=== PATIENT | female | born 1960 | race Caucasian/White ===

== ENCOUNTER → 2016-11-20 | Outpatient (CLI) | payer OTHER ==
[~2016-11-20] MED LIST: ACET-1600 PO; ACET500V PO; ATIVAN PO; BACLOFEN PO; BENA20TA2 PO; BUPR150T20 PO; BUPR150T6 PO; CALC-112 PO; CHOL10003 PO; CINNAMON/CHROMIUM PO; CIPR500T3 PO; CITA20TA5 PO; CITA20TA9 PO; DIAMOX PO; DOXY100C2 PO; FISH OIL OMEGA1 EACH PO; FURO-93 PO; GABA300C10 PO; GABA600T2 PO; GLIP-142 PO; GLIP5TAB10 PO; LEVO150T5 PO; LORA10TA75 PO; LORA1TAB PO; MAGNESIUM PO; METF500T4 PO; METF850T2 PO; METR500T PO; MINO100C PO; MONT10TA6 PO; MONT10TA9 PO; MULT-82 PO; ODANSETRON PO; OMEP-110 PO; OXYB10TA6 PO; OXYB5TAB7 PO; OXYC5TAB3 PO; PIOG45TA7 PO; POTA2IV.2 PO; SIMV40TA3 PO; TRAM100T13 PO; TRAM50TA2 PO; TYLENOL PM PO; VITAMIN B12 PO; oxycodone PO
== END | disposition home or self-care (01) ==
LOC: CVU 12:45
PROVIDERS: ATTEND Surgery
DX: I70.203 Unspecified atherosclerosis of native arteries of extremities, bilateral legs (principal); I83.10 Varicose veins of unspecified lower extremity with inflammation
CPT/HCPCS: 93922; 93925; 93970

== ENCOUNTER → 2017-03-22 | Outpatient (CLI) | payer OTHER ==
[~2017-03-22] MED LIST changes: +MULT-224 PO; -MULT-82 PO; +PIOG45TA20 PO; -PIOG45TA7 PO
== END | disposition home or self-care (01) ==
LOC: CVU 13:08
PROVIDERS: ATTEND Family Medicine
DX: Z02.9 Encounter for administrative examinations, unspecified (principal)

== ENCOUNTER 2017-12-24 07:56 | Day surgery (SDC) | payer OTHER ==
[~2017-12-24] VITALS: Ht 160 cm; Wt 74.6 kg
[~2017-12-24 07:56] MED LIST changes: -ACET500V PO; +ACET500V7 PO; -CITA20TA5 PO; +CITA20TA6 PO; -METF500T4 PO; +METF500T5 PO
[2017-12-24 09:20] VITALS: BP 104/70
[2017-12-24] MEDS ORDERED: MIDAZOLAM 1 MG/ML, 5ML ONE (09:23)
[2017-12-24] MEDS ORDERED: FLUMAZENIL 0.1 MG/1 ML, 5ML ONE (09:23)
[2017-12-24] MEDS ORDERED: HEPARIN 1,000 UNITS/ML, 10ML ONE (09:23)
[2017-12-24] MEDS ORDERED: FENTANYL PF 100 MCG/2ML ONE (09:23)
[2017-12-24] MEDS ORDERED: NALOXONE 1 MG/ML, 2ML ONE (09:24)
[2017-12-24] MEDS ORDERED: PROTAMINE SULFATE 10 MG/ML, 25ML ONE (09:24)
[2017-12-24 09:25] LABS: BASOPHILS # (AUTO) 0.05 x10^3/uL (0-0.1); BASOPHILS % (AUTO) 1 % (0-1); EOSINOPHILS # (AUTO) 0.16 x10^3/uL (0-0.4); EOSINOPHILS % (AUTO) 2 % (1-7); LYMPHOCYTES # (AUTO) 1.72 x10^3/uL (1-3.4); LYMPHOCYTES % (AUTO) 25 % (22-44); MD NO; MEAN CORPUSCULAR HEMOGLOBIN 23.8 pg (27.0-34.8); MEAN CORPUSCULAR HGB CONC 30.4 g/dL (32.4-35.8); MEAN CORPUSCULAR VOLUME 78.3 fL (80-100); MEAN PLATELET VOLUME 8.2 fL (7.4-10.4); MONOCYTES # (AUTO) 0.48 x10^3/uL (0.2-0.8); MONOCYTES % (AUTO) 7 % (2-9); NEUTROPHILS # (AUTO) 4.56 x10^3/uL (1.8-6.8); NEUTROPHILS % (AUTO) 65 % (42-75); PLATELET COUNT 299 x10^3/uL (130-400); RED BLOOD COUNT 4.29 x10^6/uL (3.82-5.3); RED CELL DISTRIBUTION WIDTH 18.2 % (9.6-15.2)
[2017-12-24] MEDS ORDERED: LIDOCAINE-MPF 2% ,5ML ONE (09:25)
[2017-12-24 09:36] LABS: ANION GAP 6 mmol/L (5-15); CALCIUM 8.5 mg/dL (8.5-10.1); CHLORIDE 108 mmol/L (98-107); CREATININE 0.88 mg/dL (0.55-1.02)
[2017-12-24] MEDS ORDERED: METF500T5 PO (09:39)
[2017-12-24] MEDS ORDERED: LEVO50TA5 PO (09:42)
[2017-12-24] MEDS ORDERED: LACTATED RINGERS 1,000 ML IV SCH (09:46)
[2017-12-24] MEDS ORDERED: VISIPAQUE 270 MG/ML, 150ML BOTTLE ONE (10:00)
[2017-12-24] MEDS ORDERED: ACETAMINOPHEN 325 MG TABLET ONE (12:34)
[2017-12-24] MEDS ORDERED: GABAPENTIN 300 MG CAPSULE ONE (12:39)
== END 2017-12-24 18:20 ==
LOC: OUT 07:56
PROVIDERS: ATTEND Surgery
DX: I73.9 Peripheral vascular disease, unspecified (principal); J43.9 Emphysema, unspecified; E11.9 Type 2 diabetes mellitus without complications; I10 Essential (primary) hypertension; F19.90 Other psychoactive substance use, unspecified, uncomplicated; Z85.3 Personal history of malignant neoplasm of breast; Z87.39 Personal history of other diseases of the musculoskeletal system and connective tissue; Z98.890 Other specified postprocedural states; Z90.13 Acquired absence of bilateral breasts and nipples; Z87.891 Personal history of nicotine dependence; Z88.5 Allergy status to narcotic agent; Z88.0 Allergy status to penicillin; Z88.8 Allergy status to other drugs, medicaments and biological substances; Z79.899 Other long term (current) drug therapy
CPT/HCPCS: 36415; 37224; 75630; 80048; 82962; 85025; 99156; 99157; C1725; C1760; C1769; J1644; J2250; J3010; J3490; J7120; Q9966; J2720; J2310

== ENCOUNTER 2018-06-02 20:53 | Inpatient (IN) | payer OTHER ==
[~2018-06-02] VITALS: Ht 160 cm; Wt 82.1 kg
[~2018-06-02 20:53] MED LIST changes: -BENA20TA2 PO; +BENA20TA4 PO; +LEVO50TA5 PO; +METF500T17 PO; -METF500T5 PO; +METF850T10 PO; -METF850T2 PO
[2018-06-02] MEDS ORDERED: ACETAMINOPHEN 325 MG TABLET PO ONE (21:30)
[2018-06-02] MEDS ORDERED: SODIUM CHLORIDE 0.9% 1,000ML IVBOLUS ONE (21:30)
[2018-06-02] MEDS ORDERED: ACETAMINOPHEN 325 MG TABLET ONE (21:32)
[2018-06-02 21:41] LABS: BASOPHILS # (AUTO) 0.04 x10^3/uL (0-0.1); BASOPHILS % (AUTO) 0 % (0-1); EOSINOPHILS # (AUTO) 0.01 x10^3/uL (0-0.4); EOSINOPHILS % (AUTO) 0 % (1-7); LYMPHOCYTES # (AUTO) 2.45 x10^3/uL (1-3.4); LYMPHOCYTES % (AUTO) 17 % (22-44); MD NO; MEAN CORPUSCULAR HEMOGLOBIN 23.7 pg (27.0-34.8); MEAN CORPUSCULAR HGB CONC 31.2 g/dL (32.4-35.8); MEAN CORPUSCULAR VOLUME 76.1 fL (80-100); MEAN PLATELET VOLUME 9.1 fL (7.4-10.4); MONOCYTES # (AUTO) 0.93 x10^3/uL (0.2-0.8); MONOCYTES % (AUTO) 7 % (2-9); NEUTROPHILS # (AUTO) 10.78 x10^3/uL (1.8-6.8); NEUTROPHILS % (AUTO) 76 % (42-75); PLATELET COUNT 494 x10^3/uL (130-400); RED BLOOD COUNT 6.09 x10^6/uL (3.82-5.3); RED CELL DISTRIBUTION WIDTH 18.5 % (9.6-15.2)
[2018-06-02 21:54] LABS: ALANINE AMINOTRANSFERASE 33 U/L (12-78); ALBUMIN 4.1 g/dL (3.4-5.0); ANION GAP 12 mmol/L (5-15); CALCIUM 8.7 mg/dL (8.5-10.1); CHLORIDE 92 mmol/L (98-107); CREATININE 1.37 mg/dL (0.55-1.02)
[2018-06-02 21:58] LABS: ALKALINE PHOSPHATASE 138 U/L (45-117); BILIRUBIN,TOTAL 0.6 mg/dL (0.2-1.0); TOTAL PROTEIN 8.9 g/dL (6.4-8.2); TROPONIN I 0.463 ng/mL (0.000-0.045)
[2018-06-02 22:11] LABS: MICROSCOPIC INDICATED
[2018-06-02 22:21] LABS: CULTURE INDICATED? YES
[2018-06-02] MEDS ORDERED: HEPARIN 5,000 UNITS/ML, 1ML ONE (22:22)
[2018-06-02] MEDS ORDERED: HEPARIN 25,000 UNITS/500ML PMX 500 ML ONE (22:23)
[2018-06-02] MEDS ORDERED: FENTANYL PF 100 MCG/2ML ONE (22:29)
[2018-06-02] MEDS ORDERED: HEPARIN 5,000 UNITS/ML, 1ML IV PRN (22:30)
[2018-06-02] MEDS ORDERED: HEPARIN 25,000 UNITS/500ML PMX 500 ML IV PRN (22:30)
[2018-06-02] MEDS ORDERED: ASPIRIN 325 MG TABLET PO ONE (22:30)
[2018-06-02] MEDS ORDERED: HEPARIN 5,000 UNITS/ML, 1ML IV ONE (22:30)
[2018-06-02] MEDS ORDERED: ASPIRIN 325 MG TABLET ONE (22:31)
[2018-06-02] MEDS ORDERED: FENTANYL PF 100 MCG/2ML IV ONE (23:00)
[2018-06-02 23:26] VITALS: BP 136/87
[2018-06-02] MEDS ORDERED: ONDANSETRON ODT 4 MG PO PRN (23:30)
[2018-06-02] MEDS ORDERED: ACETAMINOPHEN 325 MG TABLET PO PRN (23:30)
[2018-06-02] MEDS ORDERED: hydrALAzine 20 MG/ML, 1ML IVPush PRN (23:30)
[2018-06-03] MEDS ORDERED: SIMVASTATIN 40 MG TABLET PO SCH (00:30)
[2018-06-03] MEDS ORDERED: GABAPENTIN 300 MG CAPSULE PO PRN (00:30)
[2018-06-03] MEDS ORDERED: LORazepam 1MG TABLET PO PRN (01:00)
[2018-06-03] MEDS: NS + 20MEQ KCL 1,000 ML IV SCH ×3 (01:22→20:54)
[2018-06-03] MEDS: LIDODERM 5% PATCH TD PRN (01:24)
[2018-06-03] MEDS: INSULIN REGULAR 100 UNITS/ML, 3ML VIAL SQ-INSULIN SCH ×5 (02:21→20:54)
[2018-06-03 03:00] VITALS: BP 132/84
[2018-06-03] MEDS ORDERED: CALCIUM CARBONATE 500 MG TAB.CHEW PO PRN (03:30)
[2018-06-03 03:38] LABS: BASOPHILS # (AUTO) 0.05 x10^3/uL (0-0.1); BASOPHILS % (AUTO) 0 % (0-1); EOSINOPHILS # (AUTO) 0.04 x10^3/uL (0-0.4); EOSINOPHILS % (AUTO) 0 % (1-7); LYMPHOCYTES # (AUTO) 3.41 x10^3/uL (1-3.4); LYMPHOCYTES % (AUTO) 25 % (22-44); MD NO; MEAN CORPUSCULAR HEMOGLOBIN 23.7 pg (27.0-34.8); MEAN CORPUSCULAR VOLUME 76.5 fL (80-100); MEAN PLATELET VOLUME 8.8 fL (7.4-10.4); MONOCYTES # (AUTO) 1.12 x10^3/uL (0.2-0.8); MONOCYTES % (AUTO) 8 % (2-9); NEUTROPHILS # (AUTO) 9.28 x10^3/uL (1.8-6.8); NEUTROPHILS % (AUTO) 67 % (42-75); PLATELET COUNT 403 x10^3/uL (130-400); RED BLOOD COUNT 5.47 x10^6/uL (3.82-5.3); RED CELL DISTRIBUTION WIDTH 18.9 % (9.6-15.2)
[2018-06-03 04:07] LABS: ANION GAP 12 mmol/L (5-15); CALCIUM 8.9 mg/dL (8.5-10.1); CHLORIDE 98 mmol/L (98-107); CREATININE 1.08 mg/dL (0.55-1.02)
[2018-06-03 04:10] LABS: TROPONIN I 0.396 ng/mL (0.000-0.045)
[2018-06-03] MEDS: LEVOTHYROXINE 50 MCG TABLET PO SCH (04:35)
[2018-06-03 06:50] VITALS: BP 126/85
[2018-06-03] MEDS: BENAZEPRIL 20 MG TABLET PO SCH (09:00)
[2018-06-03] MEDS ORDERED: BENAZEPRIL 10 MG TABLET ONE (09:11)
[2018-06-03] MEDS: OMEPRAZOLE 20 MG CAPSULE.DR PO SCH (09:16)
[2018-06-03] MEDS: MONTELUKAST 10 MG TABLET PO SCH (09:17)
[2018-06-03] MEDS: CITALOPRAM 20 MG TABLET PO SCH (09:17)
[2018-06-03] MEDS: BUPROPION SR 150 MG TABLET PO SCH (09:17)
[2018-06-03] MEDS: ASPIRIN 81 MG TABLET EC PO SCH (11:06)
[2018-06-03 11:10] LABS: TROPONIN I 0.346 ng/mL (0.000-0.045)
[2018-06-03] MEDS ORDERED: FENTANYL PF 100 MCG/2ML ONE (12:46)
[2018-06-03] MEDS ORDERED: BIVALIRUDIN 250 MG ONE (12:46)
[2018-06-03] MEDS ORDERED: VERAPAMIL 2.5 MG/ML, 2ML ONE (12:46)
[2018-06-03] MEDS ORDERED: TICAGRELOR 90 MG TABLET ONE (12:46)
[2018-06-03] MEDS ORDERED: MIDAZOLAM 1 MG/ML, 5ML ONE (12:46)
[2018-06-03] MEDS ORDERED: LIDOCAINE 1%, 20ML ONE (12:46)
[2018-06-03 13:04] LABS: HEMOGLOBIN A1C 7.7 % (4.2-6.3)
[2018-06-03 14:25] VITALS: BP 91/59
[2018-06-03 15:50] VITALS: BP 103/61
[2018-06-03 18:57] VITALS: BP 93/62
[2018-06-03] MEDS ORDERED: ATORVASTATIN 40 MG TABLET PO SCH (21:00)
[2018-06-04] MEDS: LIDODERM 5% PATCH TD PRN (01:31)
[2018-06-04 03:16] VITALS: BP 92/51
[2018-06-04 03:20] VITALS: BP 97/57
[2018-06-04] MEDS: NS + 20MEQ KCL 1,000 ML IV SCH ×2 (04:16→16:00)
[2018-06-04] MEDS: ASPIRIN 81 MG TABLET EC PO SCH (05:28)
[2018-06-04] MEDS: LEVOTHYROXINE 50 MCG TABLET PO SCH (05:29)
[2018-06-04 05:45] LABS: BASOPHILS # (AUTO) 0.06 x10^3/uL (0-0.1); BASOPHILS % (AUTO) 1 % (0-1); EOSINOPHILS # (AUTO) 0.08 x10^3/uL (0-0.4); EOSINOPHILS % (AUTO) 1 % (1-7); LYMPHOCYTES # (AUTO) 2.76 x10^3/uL (1-3.4); LYMPHOCYTES % (AUTO) 31 % (22-44); MD NO; MEAN CORPUSCULAR HEMOGLOBIN 23.9 pg (27.0-34.8); MEAN CORPUSCULAR HGB CONC 31.4 g/dL (32.4-35.8); MEAN CORPUSCULAR VOLUME 76.2 fL (80-100); MEAN PLATELET VOLUME 9.1 fL (7.4-10.4); MONOCYTES # (AUTO) 0.71 x10^3/uL (0.2-0.8); MONOCYTES % (AUTO) 8 % (2-9); NEUTROPHILS # (AUTO) 5.43 x10^3/uL (1.8-6.8); NEUTROPHILS % (AUTO) 60 % (42-75); PLATELET COUNT 334 x10^3/uL (130-400); RED BLOOD COUNT 4.37 x10^6/uL (3.82-5.3); RED CELL DISTRIBUTION WIDTH 18.9 % (9.6-15.2)
[2018-06-04 05:56] LABS: ALBUMIN 3.1 g/dL (3.4-5.0); ANION GAP 8 mmol/L (5-15); CALCIUM 8.3 mg/dL (8.5-10.1); CHLORIDE 109 mmol/L (98-107)
[2018-06-04 06:02] LABS: ALANINE AMINOTRANSFERASE 24 U/L (12-78); ALKALINE PHOSPHATASE 91 U/L (45-117); BILIRUBIN,TOTAL 0.3 mg/dL (0.2-1.0); CHOL/HDL RATIO 2.7; CHOLESTEROL, TOTAL 143 mg/dL (140-239); CREATININE 0.95 mg/dL (0.55-1.02); HDL CHOL % 37 % (28-40); HDL CHOLESTEROL (DIRECT) 53 mg/dL (40-60); LDL CHOLESTEROL,CALCULATED 70 mg/dL (54-169); LDL/HDL RATIO 1.3 (0.5-3.0); TOTAL PROTEIN 6.6 g/dL (6.4-8.2); TRIGLYCERIDES 98 mg/dL (50-200); VLDL CHOLESTEROL 20 mg/dL (0-25)
[2018-06-04] MEDS: INSULIN REGULAR 100 UNITS/ML, 3ML VIAL SQ-INSULIN SCH ×3 (07:00→16:19)
[2018-06-04] MEDS: CITALOPRAM 20 MG TABLET PO SCH (08:47)
[2018-06-04] MEDS: BUPROPION SR 150 MG TABLET PO SCH (08:47)
[2018-06-04] MEDS: BENAZEPRIL 20 MG TABLET PO SCH (08:47)
[2018-06-04] MEDS: MONTELUKAST 10 MG TABLET PO SCH (08:47)
[2018-06-04] MEDS: OMEPRAZOLE 20 MG CAPSULE.DR PO SCH (08:47)
[2018-06-04 08:53] VITALS: BP 99/67
[2018-06-04 09:49] VITALS: BP_SYST 101; BP_SYST 107; BP_DIAS 66; BP_DIAS 69
[2018-06-04 09:50] VITALS: BP 98/72
[2018-06-04] MEDS ORDERED: MAGNESIUM SULFATE PMX 2GM/50ML 50 ML IV ONE (12:00)
[2018-06-04] MEDS ORDERED: ASPI81TA45 PO (14:58)
[2018-06-04 16:19] VITALS: BP 105/70
== END 2018-06-04 18:11 | disposition home or self-care (01) | DRG 280 ==
LOC: ED 21:33 → EDIP 22:29 → 5SO 23:16
PROVIDERS: ADMIT Internal Medicine; ATTEND Internal Medicine
PROC: 0T9B70Z Drainage of Bladder with Drainage Device, Via Natural or Artificial Opening (ICD-10-PCS; principal; 2018-06-02)
PROC: 4A023N7 Measurement of Cardiac Sampling and Pressure, Left Heart, Percutaneous Approach (ICD-10-PCS; 2018-06-03)
PROC: B2111ZZ Fluoroscopy of Multiple Coronary Arteries using Low Osmolar Contrast (ICD-10-PCS; 2018-06-03)
PROC: B2151ZZ Fluoroscopy of Left Heart using Low Osmolar Contrast (ICD-10-PCS; 2018-06-03)
DX: I21.4 Non-ST elevation (NSTEMI) myocardial infarction (principal); N17.0 Acute kidney failure with tubular necrosis; E87.2 Acidosis; F33.9 Major depressive disorder, recurrent, unspecified; N18.9 Chronic kidney disease, unspecified; E03.9 Hypothyroidism, unspecified; E11.21 Type 2 diabetes mellitus with diabetic nephropathy; E11.22 Type 2 diabetes mellitus with diabetic chronic kidney disease; E11.65 Type 2 diabetes mellitus with hyperglycemia; E78.00 Pure hypercholesterolemia, unspecified; E78.5 Hyperlipidemia, unspecified; E86.0 Dehydration; E83.42 Hypomagnesemia; E11.42 Type 2 diabetes mellitus with diabetic polyneuropathy; G51.0 Bell's palsy; M54.9 Dorsalgia, unspecified; F41.9 Anxiety disorder, unspecified; E87.6 Hypokalemia; I13.10 Hypertensive heart and chronic kidney disease without heart failure, with stage 1 through stage 4 chronic kidney disease, or unspecified chronic kidney disease; I25.10 Atherosclerotic heart disease of native coronary artery without angina pectoris; I25.2 Old myocardial infarction; J44.9 Chronic obstructive pulmonary disease, unspecified; K21.9 Gastro-esophageal reflux disease without esophagitis; Z79.84 Long term (current) use of oral hypoglycemic drugs; Z80.3 Family history of malignant neoplasm of breast; Z82.49 Family history of ischemic heart disease and other diseases of the circulatory system; Z83.3 Family history of diabetes mellitus; Z85.3 Personal history of malignant neoplasm of breast; Z86.011 Personal history of benign neoplasm of the brain; Z87.891 Personal history of nicotine dependence; Z90.13 Acquired absence of bilateral breasts and nipples; R27.0 Ataxia, unspecified; Z88.5 Allergy status to narcotic agent; Z88.0 Allergy status to penicillin
CPT/HCPCS: 36415; 71045; 80048; 80053; 80061; 81001; 82140; 82962; 83036; 83605; 83735; 84100; 84443; 84484; 85025; 85520; 87040; 87086; 90656; 93005; 93306; 93458; 96374; 96375; 99156; 99157; 99291; C1760; C1769; C1894; G0378; J0583; J1644; J1815; J2250; J3010; J3480; J3490; J3475; J7030; Q9967

== ENCOUNTER → 2018-08-06 | Outpatient (CLI) | payer MEDICARE ==
[~2018-08-06] MED LIST changes: +ASPI81TA45 PO; -BENA20TA4 PO; +BENA20TA54 PO; -GABA600T2 PO; +GABA600T7 PO; -MULT-224 PO; +MULT-642 PO
== END | disposition home or self-care (01) ==
LOC: CFH 13:45
PROVIDERS: ATTEND Internal Medicine Cardiovascular Disease
DX: I08.2 Rheumatic disorders of both aortic and tricuspid valves (principal); I11.9 Hypertensive heart disease without heart failure; E11.9 Type 2 diabetes mellitus without complications; I25.2 Old myocardial infarction; Z85.3 Personal history of malignant neoplasm of breast; Z90.13 Acquired absence of bilateral breasts and nipples
CPT/HCPCS: 93306

== ENCOUNTER 2019-05-20 09:34 | Emergency (ER) | payer MEDICARE ==
[~2019-05-20] VITALS: Ht 160 cm; Wt 80.0 kg
[~2019-05-20 09:34] MED LIST changes: -MINO100C PO; +MINO100C61 PO; +OXYB5TAB10 PO; -OXYB5TAB7 PO
--- NOTE | 2019-05-20 10:00 | NUR ---
pt to ed for high glucose x4-5 days. pt states elevated to 300-400 last night. pt unable to recall names of medications, but states that shes been taking extra doses of "some of them" and "taking as many as i can" in an attempt to lower blood glucose. pt connected to monitors. vss. Dr. Gomez to bs for assessment. awaiting orders. fsbg checked: 290
--- NOTE | 2019-05-20 10:12 | NUR ---
pt unable to recall medications at this time. med rec not completed.
[2019-05-20 10:21] LABS: PH, VENOUS 7.378 pH (7.320-7.420)
[2019-05-20 10:33] VITALS: BP 165/83
[2019-05-20] MEDS ORDERED: BACL20TA PO (10:33)
[2019-05-20] MEDS ORDERED: PIOG45TA4 PO (10:33)
[2019-05-20] MEDS ORDERED: OXYB5TAB10 PO (10:33)
[2019-05-20] MEDS ORDERED: ONDA4TAB13 SL (10:33)
[2019-05-20] MEDS ORDERED: TRAZ-137 PO (10:33)
[2019-05-20 10:35] LABS: ANION GAP 9 mmol/L (5-15); CALCIUM 9.5 mg/dL (8.5-10.1); CHLORIDE 98 mmol/L (98-107); CREATININE 1.36 mg/dL (0.55-1.02)
--- NOTE | 2019-05-20 10:37 | NUR ---
pt resting in room. vss. warm blanket provided. pt up self to rr to provide urine. ua collected adn sent. no other needs expressed. awaiting results.
[2019-05-20 10:39] LABS: MEAN CORPUSCULAR HEMOGLOBIN 25.4 pg (27.0-34.8); MEAN CORPUSCULAR HGB CONC 30.8 g/dL (32.4-35.8); MEAN CORPUSCULAR VOLUME 82.4 fL (80-100); MEAN PLATELET VOLUME 9.2 fL (7.4-10.4); PLATELET COUNT 296 x10^3/uL (130-400); RED BLOOD COUNT 6.11 x10^6/uL (3.82-5.3); RED CELL DISTRIBUTION WIDTH 21.4 % (9.6-15.2)
[2019-05-20 10:41] LABS: ALANINE AMINOTRANSFERASE 35 U/L (12-78); ALKALINE PHOSPHATASE 129 U/L (45-117); BILIRUBIN,TOTAL 0.4 mg/dL (0.2-1.0); TOTAL PROTEIN 8.6 g/dL (6.4-8.2)
[2019-05-20 11:00] LABS: BASOPHILS # (AUTO) 0.01 x10^3/uL (0-0.1); BASOPHILS % (AUTO) 0 % (0-1); EOSINOPHILS # (AUTO) 0.05 x10^3/uL (0-0.4); EOSINOPHILS % (AUTO) 1 % (1-7); LYMPHOCYTES # (AUTO) 1.21 x10^3/uL (1-3.4); LYMPHOCYTES % (AUTO) 13 % (22-44); MD SCAN; MONOCYTES % (AUTO) 5 % (2-9); NEUTROPHILS # (AUTO) 7.65 x10^3/uL (1.8-6.8); NEUTROPHILS % (AUTO) 81 % (42-75)
[2019-05-20 11:01] LABS: MICROSCOPIC INDICATED
--- NOTE | 2019-05-20 11:16 | NUR ---
pt removing monioring equipment. education provided. pt continues to refuse monitoring equipment.
[2019-05-20 11:18] LABS: CULTURE INDICATED? NO
[2019-05-20] MEDS ORDERED: INSULIN SINGLE DOSE, ER ONE (11:24)
[2019-05-20 11:30] LABS: ACETONE, SERUM Trace (10mg/dL) mg/dL (Negative)
[2019-05-20] MEDS ORDERED: INSULIN REGULAR 100 UNITS/ML, 3ML VIAL SQ-INSULIN ONE (11:30)
[2019-05-20] MEDS ORDERED: LORazepam 1MG TABLET ONE (11:35)
--- NOTE | 2019-05-20 11:39 | NUR ---
pt continues to pace in room and to/from bathroom. pt instucted that she may not wait in the hallway or leave until discharge or she will have to sign ama form. pt remains in room but continues to refuse monitoring equipment. Dr. Gomez aware. order for ativan received and administered. pt now resting in [facility], encouraged to watch tv to calm her until dispo is determined by physican. dog is calm at bs.
[2019-05-20] MEDS ORDERED: LORazepam 1MG TABLET PO ONE (12:00)
--- NOTE | 2019-05-20 12:06 | NUR ---
pt now calmer, resting in gurney and talking on phone. pt repeatedly requesting more ativan. pt educated that she must wait for it to be effective. pt continuing to refuse monitoring equipment. no needs expressed at this time.
[2019-05-20] MEDS ORDERED: NALOXONE 1 MG/ML, 2ML ONE (12:39)
== END 2019-05-20 13:26 | disposition home or self-care (01) ==
LOC: ED 13:20
DX: E11.65 Type 2 diabetes mellitus with hyperglycemia (principal); K21.9 Gastro-esophageal reflux disease without esophagitis; E03.9 Hypothyroidism, unspecified; J45.909 Unspecified asthma, uncomplicated; I10 Essential (primary) hypertension
CPT/HCPCS: 80053; 81001; 82010; 82803; 82962; 85025; 96372; 99283; J1815

== ENCOUNTER 2019-06-12 09:13 | Outpatient (CLI) | payer MEDICARE ==
[~2019-06-12 09:13] MED LIST changes: +BACL20TA PO; +ONDA4TAB13 SL; +PIOG45TA4 PO; +TRAZ-137 PO
== END 2019-06-12 23:59 | disposition home or self-care (01) ==
LOC: ROC 09:13
PROVIDERS: ATTEND Radiology Radiation Oncology
DX: G93.0 Cerebral cysts (principal)
CPT/HCPCS: 99214; G0463

== ENCOUNTER 2019-06-25 12:33 | Outpatient (CLI) | payer MEDICARE ==
[~2019-06-25 12:33] MED LIST changes: -BUPR150T20 PO; +BUPR150T28 PO; +MONT10TA11 PO; -MONT10TA9 PO; -PIOG45TA4 PO; +PIOG45TA63 PO; +SIMV40TA20 PO; -SIMV40TA3 PO; -TRAZ-137 PO; +TRAZ-175 PO
[2019-06-25] MEDS ORDERED: GADOTERATE 7.5 MMOL/15 ML SYR ONE (13:12)
== END 2019-06-25 23:59 | disposition home or self-care (01) ==
LOC: CFH 12:33
PROVIDERS: ATTEND Radiology Radiation Oncology
DX: G93.0 Cerebral cysts (principal); G93.89 Other specified disorders of brain; R93.0 Abnormal findings on diagnostic imaging of skull and head, not elsewhere classified
CPT/HCPCS: 70553; A9575

== ENCOUNTER 2019-07-08 11:25 | Emergency (ER) | payer MEDICARE ==
[~2019-07-08] VITALS: Ht 160 cm; Wt 79.5 kg
[~2019-07-08 11:25] MED LIST changes: +BUPR150T20 PO; -BUPR150T28 PO; -MONT10TA11 PO; +MONT10TA9 PO; +PIOG45TA4 PO; -PIOG45TA63 PO; -SIMV40TA20 PO; +SIMV40TA3 PO; +TRAZ-137 PO; -TRAZ-175 PO
--- NOTE | 2019-07-08 11:47 | NUR ---
JUDAH RPT TO GONZÁLEZ BERNSTEIN.
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
--- NOTE | 2019-07-08 11:50 | NUR ---
PT TO RADIOLOGY WITH TECH TRANSPORT
[2019-07-08 12:12] LABS: BASOPHILS # (AUTO) 0.04 x10^3/uL (0-0.1); BASOPHILS % (AUTO) 1 % (0-1); EOSINOPHILS # (AUTO) 0.11 x10^3/uL (0-0.4); EOSINOPHILS % (AUTO) 2 % (1-7); LYMPHOCYTES # (AUTO) 1.27 x10^3/uL (1-3.4); LYMPHOCYTES % (AUTO) 18 % (22-44); MD NO; MEAN CORPUSCULAR HGB CONC 31.7 g/dL (32.4-35.8); MEAN CORPUSCULAR VOLUME 85.2 fL (80-100); MONOCYTES # (AUTO) 0.36 x10^3/uL (0.2-0.8); MONOCYTES % (AUTO) 5 % (2-9); NEUTROPHILS # (AUTO) 5.43 x10^3/uL (1.8-6.8); NEUTROPHILS % (AUTO) 75 % (42-75); PLATELET COUNT 265 x10^3/uL (130-400); RED BLOOD COUNT 5.09 x10^6/uL (3.82-5.3); RED CELL DISTRIBUTION WIDTH 19.1 % (9.6-15.2)
[2019-07-08 12:21] LABS: CHLORIDE 105 mmol/L (98-107)
[2019-07-08 12:22] LABS: ALBUMIN 3.4 g/dL (3.4-5.0); ANION GAP 5 mmol/L (5-15); CALCIUM 9.5 mg/dL (8.5-10.1); CREATININE 0.95 mg/dL (0.55-1.02)
--- NOTE | 2019-07-08 13:00 | NUR ---
pt reports she has been suicidal for 10 years, no previous attempt. pt states plan would be to OD on meds. pt states she has plan to follow up with psychiatrist outpatient. CHRISTIAN Gomez notified. Psyc consult ordered, psyc shannen adler paged and aware of consult ordered.
--- NOTE | 2019-07-08 13:06 | NUR ---
pt to CT with tech and therapy dog.
[2019-07-08 13:43] LABS: AMPHETAMINE SCREEN, URINE Negative (Negative); BARBITURATE SCREEN, URINE Negative (Negative); BENZODIAZEPINE SCREEN, URINE Negative (Negative); CANNABINOID SCREEN, URINE Positive (Negative); COCAINE SCREEN, URINE Negative (Negative); METHADONE SCREEN, URINE Negative (Negative); OPIATE SCREEN, URINE Negative (Negative)
[2019-07-08 14:03] VITALS: BP 157/81
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
== END 2019-07-08 14:25 | disposition other institution (70) ==
LOC: ED 14:23
DX: R51 Headache (principal); E11.9 Type 2 diabetes mellitus without complications; V43.52XA Car driver injured in collision with other type car in traffic accident, initial encounter; Y93.89 Activity, other specified; Y92.488 Other paved roadways as the place of occurrence of the external cause; Y99.8 Other external cause status
CPT/HCPCS: 36415; 70450; 71046; 80048; 80307; 82040; 85025; 99284

== ENCOUNTER 2019-08-26 16:47 | Emergency (ER) | payer MEDICARE ==
[~2019-08-26] VITALS: Ht 160 cm; Wt 79.1 kg
[~2019-08-26 16:47] MED LIST changes: -BUPR150T20 PO; +BUPR150T28 PO; +MONT10TA11 PO; -MONT10TA9 PO; -PIOG45TA4 PO; +PIOG45TA63 PO; +SIMV40TA20 PO; -SIMV40TA3 PO; -TRAZ-137 PO; +TRAZ-175 PO
[2019-08-26 16:52] VITALS: BP 130/67
--- NOTE | 2019-08-26 18:09 | NUR ---
NO ANSWER IN LOBBY
--- NOTE | 2019-08-26 18:55 | NUR ---
pt to room from lobby
--- NOTE | 2019-08-26 18:58 | NUR ---
PT TO ROOM AT THIS TIME.
--- NOTE | 2019-08-26 19:41 | NUR ---
Pt here for falling onto her face when running to answer phone in her kitchen. Pt reports that she has alot of pain. Pt has multiple abrasions to face. mild swelling around left eye. Pt has service dog with her. Pt asking for food and tv remoter.
--- NOTE | 2019-08-26 20:51 | NUR ---
Patient/Caregiver given discharge instructions and they have confirmed that they understand the instructions. Patient ambulatory with steady gait.
== END 2019-08-26 20:54 | disposition home or self-care (01) ==
LOC: ED 17:47
DX: S42.202A Unspecified fracture of upper end of left humerus, initial encounter for closed fracture (principal); S05.12XA Contusion of eyeball and orbital tissues, left eye, initial encounter; R51 Headache; K21.9 Gastro-esophageal reflux disease without esophagitis; E11.9 Type 2 diabetes mellitus without complications; E78.00 Pure hypercholesterolemia, unspecified; I25.2 Old myocardial infarction; I25.10 Atherosclerotic heart disease of native coronary artery without angina pectoris; I11.9 Hypertensive heart disease without heart failure; E78.5 Hyperlipidemia, unspecified; E03.9 Hypothyroidism, unspecified; W18.30XA Fall on same level, unspecified, initial encounter; Y93.89 Activity, other specified; Y92.009 Unspecified place in unspecified non-institutional (private) residence as the place of occurrence of the external cause; Y99.8 Other external cause status
CPT/HCPCS: 70450; 72125; 99285

== ENCOUNTER 2019-10-09 12:10 | Outpatient (CLI) | payer MEDICARE | END 2019-10-09 23:59 | disposition home or self-care (01) | LOC: CARD 12:10 | PROVIDERS: ATTEND Psychiatry & Neurology Neurology | DX: G40.89 Other seizures (principal) | CPT/HCPCS: 95819 ==

== ENCOUNTER 2019-10-14 17:21 | Emergency (ER) | payer MEDICARE ==
[~2019-10-14] VITALS: Ht 160 cm; Wt 80.0 kg
--- NOTE | 2019-10-14 17:27 | NUR ---
room air sat of 84% in triage
--- NOTE | 2019-10-14 17:54 | NUR ---
Task RN. Pt states seen by home health RN today and it was noted her room air sat at home was in the 80's. Pt states cough x3 months as well. Pt denies CP, but states some dizziness and worsening weakness. Pt with hx of brain Tumor as well as breast ca. Pt states hx of asthma and states she used her albuterol inhail. x1 today with some relief. Pt placed on 2L o2 and sat is >95%. Pt with no respiratory distress and protecting own airway well. ERMD to see. Pt placed on monitors, EKG completed.
[2019-10-14 18:44] LABS: BASOPHILS # (AUTO) 0.01 x10^3/uL (0-0.1); BASOPHILS % (AUTO) 0 % (0-1); EOSINOPHILS # (AUTO) 0.06 x10^3/uL (0-0.4); EOSINOPHILS % (AUTO) 1 % (1-7); LYMPHOCYTES # (AUTO) 1.46 x10^3/uL (1-3.4); LYMPHOCYTES % (AUTO) 23 % (22-44); MD NO; MEAN CORPUSCULAR HEMOGLOBIN 27.1 pg (27.0-34.8); MEAN CORPUSCULAR VOLUME 87.4 fL (80-100); MEAN PLATELET VOLUME 8.1 fL (7.4-10.4); MONOCYTES # (AUTO) 0.49 x10^3/uL (0.2-0.8); MONOCYTES % (AUTO) 8 % (2-9); NEUTROPHILS # (AUTO) 4.31 x10^3/uL (1.8-6.8); NEUTROPHILS % (AUTO) 68 % (42-75); PLATELET COUNT 256 x10^3/uL (130-400); RED BLOOD COUNT 3.86 x10^6/uL (3.82-5.3)
--- NOTE | 2019-10-14 18:46 | NUR ---
ROOM AIR SAT OF 88% ADMITS TO RECENT SOB WITH EXERTION PROVIDER MADE AWARE
[2019-10-14 18:58] LABS: ALBUMIN 2.8 g/dL (3.4-5.0); ANION GAP 3 mmol/L (5-15); CALCIUM 8.4 mg/dL (8.5-10.1); CHLORIDE 107 mmol/L (98-107)
--- NOTE | 2019-10-14 19:02 | NUR ---
Pt bedside report from Yogi lane. This rn to assume care of pt. Pt tolerating RA from 89-96%, md aware of situation. Awaiting further orders.
[2019-10-14 19:03] LABS: ALANINE AMINOTRANSFERASE 12 U/L (12-78); ALKALINE PHOSPHATASE 108 U/L (45-117); BILIRUBIN,TOTAL 0.2 mg/dL (0.2-1.0); CREATININE 1.03 mg/dL (0.55-1.02); TOTAL PROTEIN 6.3 g/dL (6.4-8.2)
[2019-10-14 19:04] VITALS: BP 93/55
--- NOTE | 2019-10-14 19:14 | NUR ---
All results back. Pt up for recheck.
--- NOTE | 2019-10-14 19:55 | NUR ---
at bedside for recheck.
== END 2019-10-14 20:11 | disposition home or self-care (01) ==
LOC: ED 17:59
DX: I50.814 Right heart failure due to left heart failure (principal); I11.0 Hypertensive heart disease with heart failure; R06.00 Dyspnea, unspecified; R05 Cough; R11.0 Nausea; E11.9 Type 2 diabetes mellitus without complications; K21.9 Gastro-esophageal reflux disease without esophagitis; I25.2 Old myocardial infarction; G43.909 Migraine, unspecified, not intractable, without status migrainosus; E78.5 Hyperlipidemia, unspecified
CPT/HCPCS: 36415; 71045; 80053; 83880; 85025; 93005; 99285

== ENCOUNTER → 2020-01-05 | Outpatient (CLI) | payer MEDICARE ==
[~2020-01-05] MED LIST changes: +GADOTERATE 7.5 MMOL/15 ML SYR ONE
== END | disposition home or self-care (01) ==
LOC: RAD 10:25
PROVIDERS: ATTEND Radiology Radiation Oncology
DX: G93.0 Cerebral cysts (principal)
CPT/HCPCS: 70553; A9575

== ENCOUNTER → 2020-01-07 | Outpatient (CLI) | payer MEDICARE ==
[~2020-01-07] MED LIST changes: -GADOTERATE 7.5 MMOL/15 ML SYR ONE
== END | disposition home or self-care (01) ==
LOC: ROC 08:53
PROVIDERS: ATTEND Radiology Radiation Oncology
DX: G93.0 Cerebral cysts (principal)
CPT/HCPCS: 99213; G0463

== ENCOUNTER 2020-02-10 08:40 | Emergency (ER) | payer MEDICARE ==
[~2020-02-10] VITALS: Ht 160 cm; Wt 73.1 kg
--- NOTE | 2020-02-10 09:49 | NUR ---
PT PRESENTS TO ED SENT FROM PCP STATING "MY CBC IS LOW, SHE SAYS I MAY BE ANEMIC." PT HAS A BENIGN BRAIN TUMOR, AND HAS NOT HAD A BLOOD TRANSFUSION IN THE PAST. THIS RN ATTEMPTED PIV X 1, PT HAS VERY POOR VASCULATURE. RN LOUIS AT BEDSIDE TO ATTEMPT US IV INSERTION, LABS HAVE ALREADY BEEN DRAWN BY TECH. PT ATTACHED TO BP AND SPO2 MONITORS, CALL LIGHT IN REACH, DANY REQUESTED FROM PHARMACY.
[2020-02-10] MEDS ORDERED: IRON SUCROSE COMPLEX 300 MG in SODIUM CHLORIDE 0.9% 250 ML IV ONE (10:00)
[2020-02-10 10:12] LABS: MEAN CORPUSCULAR HEMOGLOBIN 18.8 pg (27.0-34.8); MEAN CORPUSCULAR VOLUME 66.7 fL (80-100); MEAN PLATELET VOLUME 8.9 fL (7.4-10.4); PLATELET COUNT 306 x10^3/uL (130-400); RED BLOOD COUNT 3.29 x10^6/uL (3.82-5.3); RED CELL DISTRIBUTION WIDTH 20.5 % (9.6-15.2)
[2020-02-10 10:13] LABS: MEAN CORPUSCULAR HGB CONC 28.2 g/dL (32.4-35.8)
--- NOTE | 2020-02-10 10:13 | NUR ---
pt has hx bilateral mastectomy in 2014, CHRISTIAN Damon notified, RN kary ok to use peripheral IVs to each arm. US PIV inserted to bilateral upper arm by RN Jorge. Venofer infusing via IV pump at prescribed rate. this RN monitoring pt closely. pt a&o, resps even and unlabored, nadn. awaiting blood to be ready from blood bank, MD woods'd RN to start blood concurrently with venofer infusion, through separate PIV once arrived from blood bank.
[2020-02-10 10:23] LABS: BASOPHILS # (AUTO) 0.07 x10^3/uL (0-0.1); BASOPHILS % (AUTO) 1 % (0-1); EOSINOPHILS % (AUTO) 2 % (1-7); LYMPHOCYTES # (AUTO) 0.99 x10^3/uL (1-3.4); LYMPHOCYTES % (AUTO) 18 % (22-44); MD MORPH REVIEW ONLY; MONOCYTES # (AUTO) 0.27 x10^3/uL (0.2-0.8); MONOCYTES % (AUTO) 5 % (2-9); NEUTROPHILS # (AUTO) 4.03 x10^3/uL (1.8-6.8); NEUTROPHILS % (AUTO) 74 % (42-75)
[2020-02-10 10:24] LABS: ANISOCYTOSIS 2+; HYPOCHROMIA 2+; MICROCYTOSIS 2+; OVALOCYTES 1+; POLYCHROMASIA 1+
[2020-02-10 10:25] LABS: <PLATELET ESTIMATE> ADEQUATE; <PLT MORPHOLOGY> NORMAL PLT MORPH
--- NOTE | 2020-02-10 11:00 | NUR ---
this RN notified blood is ready, consent signed by patient for blood transfusion after consented by MD Damon. pt tolerating venofer infusion well.
[2020-02-10 11:21] VITALS: BP 145/73
--- NOTE | 2020-02-10 11:31 | NUR ---
blood initiated with RN Fe verifying. PRBCs infusing to left upper arm PIV (IV flushes well and has good blood return prior to transfusion), at rate of 100mL/hr via IV pump. venofer is infusing at prescribed rate via IV pump to right upper arm, IV remains patent with no leakage, no s/sx infiltration. this RN monitoring pt at bedside one-to-one for first 15 min per blood policy. pt is a&o, resps even and unlabored, nsr on patient monitor. pt denies any symptoms at this time, pt tolerating venofer and PRBcs well.
[2020-02-10 11:36] VITALS: BP 137/63
--- NOTE | 2020-02-10 11:53 | NUR ---
pt has voided x 2 since arrival to ED. pt is a&o, resps even and unlabored, nsr on engine monitor with no ectopy. vss. pt denies any symptoms. pt watching tv as blood transfuses via IV pump. venofer infusion complete. posterior lower lung sounds assessed, lung sounds clear bilaterally. blood infusion increased to 250mL/hr as pt is tolerating well. PIV sites bilaterally have no leakage, no redness, no swelling. pt has no complaint at this time.
--- NOTE | 2020-02-10 12:40 | NUR ---
blood continuing to transfuse via IV pump, pt tolerating well. no s/sx transfusion reaction. pt a&o, resps even and unlabored, nsr on cardiac catheterization technologist with no ectopy. pt given snack with CHRISTIAN Damon's ok.
[2020-02-10 13:50] VITALS: BP 144/66
--- NOTE | 2020-02-10 13:50 | NUR ---
LATE ENTRY FOR 1350: BLOOD TRANSFUSION COMPLETE. PT IS A&O, RESPS EVEN AND UNLABORED, NO S/SX TRANSFUSION REACTION. PIV SITES HAVE NO LEAKING, REDNESS, SWELLING OR PAIN. VSS. PT HAS NO COMPLAINT. PT TO BE DISCHARGED.
--- NOTE | 2020-02-10 14:19 | NUR ---
LATE ENTRY FOR 1419: PT GIVEN DC INSTRUCTIONS AND SCRIPT, EDUCATED REGARDING RX FOR IRON. PIV'S X2 DC'D WITH TIPS INTACT. PT CALLED A FRIEND TO PICK HER UP, THIS RN ESCORTED PT TO WAIT ROOM WHERE FRIEND WAS WAITING FOR HER. PT LEFT WITH OWN WALKER, AMBULATORY WITH STEADY GAIT, UNASSISTED AT DC. PT A&O, RESPS EVEN AND UNLABORED, NO COMPLAINT AT DC. ALL QUESTIONS ANSWERED.
== END 2020-02-10 14:19 | disposition home or self-care (01) ==
LOC: ED 09:19
DX: D64.9 Anemia, unspecified (principal); E11.9 Type 2 diabetes mellitus without complications; K21.9 Gastro-esophageal reflux disease without esophagitis; I11.0 Hypertensive heart disease with heart failure; I50.9 Heart failure, unspecified; J45.909 Unspecified asthma, uncomplicated; I25.2 Old myocardial infarction; E03.9 Hypothyroidism, unspecified
CPT/HCPCS: 36415; 36430; 85025; 86850; 86900; 86923; 99285; J1756; J7050; P9016

== ENCOUNTER 2020-02-21 19:58 | Inpatient (IN) | payer MEDICARE ==
[~2020-02-21] VITALS: Ht 160 cm; Wt 73.5 kg
[2020-02-21] MEDS ORDERED: LIDOCAINE 1%-EPI 1:100K, 20ML ONE (20:45)
--- NOTE | 2020-02-21 20:46 | NUR ---
pt came into ED for epistaxis for the past two days. pt resting on gurney, VSS. Gross neuro intact. pt reports dizziness at times due to moving around. P/W/D. pt states she is having significant clots coming out of nose, pt is on blood thinners. Law GONZALEZ at bs for eval and poc. at bs. [facility].
[2020-02-21] MEDS ORDERED: LIDOCAINE 1%-EPI 1:100K, 20ML INFIL ONE (21:00)
--- NOTE | 2020-02-21 21:15 | NUR ---
PT RESTING ON GURNEY, SLIGHT EPISTAXIS FROM NOSE WITH CLAMP IN PLACE. PT NAD, GIVEN WATER FOR COMFORT, AT , [facility]. WAITING FOR LAB RESULTS.
[2020-02-21 21:26] LABS: ANION GAP 6 mmol/L (5-15); CHLORIDE 103 mmol/L (98-107); CREATININE 0.71 mg/dL (0.55-1.02)
[2020-02-21 21:39] LABS: BASOPHILS # (AUTO) 0.06 x10^3/uL (0-0.1); BASOPHILS % (AUTO) 1 % (0-1); EOSINOPHILS # (AUTO) 0.16 x10^3/uL (0-0.4); EOSINOPHILS % (AUTO) 2 % (1-7); LYMPHOCYTES # (AUTO) 1.02 x10^3/uL (1-3.4); LYMPHOCYTES % (AUTO) 15 % (22-44); MD MORPH REVIEW ONLY; MEAN CORPUSCULAR HEMOGLOBIN 22.2 pg (27.0-34.8); MEAN CORPUSCULAR VOLUME 76.7 fL (80-100); MEAN PLATELET VOLUME 9.3 fL (7.4-10.4); MONOCYTES # (AUTO) 0.33 x10^3/uL (0.2-0.8); MONOCYTES % (AUTO) 5 % (2-9); NEUTROPHILS # (AUTO) 5.09 x10^3/uL (1.8-6.8); NEUTROPHILS % (AUTO) 76 % (42-75); PLATELET COUNT 260 x10^3/uL (130-400); RED BLOOD COUNT 3.48 x10^6/uL (3.82-5.3); RED CELL DISTRIBUTION WIDTH 32.3 % (9.6-15.2)
--- NOTE | 2020-02-21 21:40 | NUR ---
pt ambulated to and from restroom with a smooth and steady gait. nad, vss. waiting for lab tests. given clean new mask per request. wctm.
[2020-02-21 21:42] LABS: ANISOCYTOSIS 2+; MEAN CORPUSCULAR HGB CONC 28.9 g/dL (32.4-35.8)
[2020-02-21 21:43] LABS: MICROCYTOSIS 2+; OVALOCYTES 1+; POLYCHROMASIA 1+
[2020-02-21 21:45] LABS: <PLATELET ESTIMATE> ADEQUATE; <PLT MORPHOLOGY> NORMAL PLT MORPH
[2020-02-21] MEDS ORDERED: NALOXONE 0.4 MG/ML, 1ML IVPush ONE (22:00)
[2020-02-21] MEDS ORDERED: LORazepam 2 MG/ML, 1ML ONE (22:04)
[2020-02-21] MEDS ORDERED: LORazepam 2 MG/ML, 1ML IVPush STA (22:06)
--- NOTE | 2020-02-21 22:16 | NUR ---
Pt had yenny jhaveri called for sudden loss of loc and response, IO placed. IO cap unable to screw off, IO removed and pt had PIV placed by other RN, NO IO needed at this time.
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
--- NOTE | 2020-02-21 22:36 | NUR ---
pt ANOx2, knows self and date. wctm.
--- NOTE | 2020-02-21 22:45 | NUR ---
pt okay'd keys and dog to be watched by friend, Goyo Can phone number pt house keys with Goyo at this time.
[2020-02-21] MEDS ORDERED: LEVETIRACETAM 1,000 MG in SODIUM CHLORIDE 0.9% 100 ML IV ONE (23:00)
--- NOTE | 2020-02-21 23:42 | NUR ---
pt resting on Valarie noe at this time, states "i am trying really hard to be asleep" when RN attempting med rec. pt appears to not be the greatest historian. pt refusing to answer additonal past medical history questions at this time. AL[facility]. NIR, wclakeshia. waiting for admit bed
--- NOTE | 2020-02-22 00:27 | NUR ---
REPORT CALLED TO DORON CLAUDIO, PT NAD, VSS, NO CHANGE IN CONDITION.
[2020-02-22 00:32] LABS: MICROSCOPIC NOT IND
[2020-02-22 01:19] VITALS: BP 147/83
[2020-02-22] MEDS ORDERED: ENALAPRILAT 1.25 MG/ML, 2ML IVPush PRN (01:30)
[2020-02-22] MEDS ORDERED: DOCUSATE 100 MG CAPSULE PO PRN (01:30)
[2020-02-22] MEDS ORDERED: MELATONIN 5 MG TABLET PO PRN (01:30)
[2020-02-22] MEDS ORDERED: ACETAMINOPHEN 325 MG TABLET PO PRN (01:30)
[2020-02-22] MEDS ORDERED: LIDODERM 5% PATCH TD PRN (01:30)
[2020-02-22 01:32] VITALS: BP 143/74
[2020-02-22] MEDS ORDERED: GABAPENTIN 300 MG CAPSULE PO PRN (02:00)
[2020-02-22 05:31] LABS: MEAN CORPUSCULAR VOLUME 76.9 fL (80-100); MEAN PLATELET VOLUME 9.5 fL (7.4-10.4); PLATELET COUNT 267 x10^3/uL (130-400); RED BLOOD COUNT 3.43 x10^6/uL (3.82-5.3); RED CELL DISTRIBUTION WIDTH 32.9 % (9.6-15.2)
[2020-02-22 05:38] LABS: ANION GAP 6 mmol/L (5-15); CALCIUM 9.1 mg/dL (8.5-10.1); CHLORIDE 103 mmol/L (98-107)
[2020-02-22 05:50] LABS: CREATININE 0.64 mg/dL (0.55-1.02)
[2020-02-22] MEDS ORDERED: LEVOTHYROXINE 50 MCG TABLET PO SCH (06:00)
[2020-02-22 06:11] LABS: MEAN CORPUSCULAR HGB CONC 28.6 g/dL (32.4-35.8)
[2020-02-22 06:21] LABS: BASOPHILS % (AUTO) 0 % (0-1); EOSINOPHILS # (AUTO) 0.03 x10^3/uL (0-0.4); EOSINOPHILS % (AUTO) 0 % (1-7); LYMPHOCYTES # (AUTO) 0.93 x10^3/uL (1-3.4); LYMPHOCYTES % (AUTO) 13 % (22-44); MD SCAN; MONOCYTES # (AUTO) 0.41 x10^3/uL (0.2-0.8); MONOCYTES % (AUTO) 6 % (2-9); NEUTROPHILS % (AUTO) 81 % (42-75)
[2020-02-22] MEDS: INSULIN LISPRO 100 UNITS/ML, PEN SQ-INSULIN SCH ×2 (07:00→11:00)
[2020-02-22 07:23] VITALS: BP 145/84
[2020-02-22 08:09] LABS: RED BLOOD COUNT 3.43 x10^6/uL (3.82-5.3)
[2020-02-22 08:27] LABS: ABSOLUTE RETICS # 0.161 x10^6/uL (0.5-2.5); RETICULOCYTE COUNT % 4.7 % (0.5-1.5)
[2020-02-22] MEDS ORDERED: metFORMIN 500 MG TABLET PO SCH ×2 (09:00)
[2020-02-22] MEDS ORDERED: MONTELUKAST 10 MG TABLET PO SCH (09:00)
[2020-02-22] MEDS ORDERED: BACLOFEN 10 MG TABLET PO SCH (09:00)
[2020-02-22] MEDS ORDERED: OMEPRAZOLE 20 MG CAPSULE.DR PO SCH (09:00)
[2020-02-22] MEDS ORDERED: CITALOPRAM 20 MG TABLET PO SCH (09:00)
[2020-02-22 10:11] LABS: INTERNATIONAL NORMALIZED RATIO 0.99 (0.93-1.1); PROTHROMBIN TIME 10.2 Seconds (9.6-11.5)
[2020-02-22] MEDS ORDERED: LEVETIRACETAM 1,000 MG in SODIUM CHLORIDE 0.9% 100 ML IV SCH (11:00)
[2020-02-22 13:55] VITALS: BP 131/82
[2020-02-22] MEDS ORDERED: TRAZODONE 100MG TABLET PO SCH (21:00)
[2020-02-22] MEDS ORDERED: SIMVASTATIN 40 MG TABLET PO SCH (21:00)
[2020-02-22] MEDS ORDERED: OXYBUTYNIN CHLORIDE 5 MG TABLET PO SCH (21:00)
== END 2020-02-22 16:17 | disposition left against medical advice (07) | DRG 101 ==
LOC: ED 20:22 → EDIP 23:25 → 4WST 02-22 00:55
PROVIDERS: ADMIT Family Medicine; ATTEND Hospitalist
DX: G40.409 Other generalized epilepsy and epileptic syndromes, not intractable, without status epilepticus (principal); F33.9 Major depressive disorder, recurrent, unspecified; D50.9 Iron deficiency anemia, unspecified; E03.9 Hypothyroidism, unspecified; E11.42 Type 2 diabetes mellitus with diabetic polyneuropathy; E11.51 Type 2 diabetes mellitus with diabetic peripheral angiopathy without gangrene; E78.00 Pure hypercholesterolemia, unspecified; E78.5 Hyperlipidemia, unspecified; H53.2 Diplopia; H54.61 Unqualified visual loss, right eye, normal vision left eye; H91.91 Unspecified hearing loss, right ear; I11.0 Hypertensive heart disease with heart failure; I25.2 Old myocardial infarction; I50.9 Heart failure, unspecified; J45.909 Unspecified asthma, uncomplicated; N32.81 Overactive bladder; R04.0 Epistaxis; T45.525A Adverse effect of antithrombotic drugs, initial encounter; Z79.02 Long term (current) use of antithrombotics/antiplatelets; Z80.3 Family history of malignant neoplasm of breast; Z82.49 Family history of ischemic heart disease and other diseases of the circulatory system; Z83.3 Family history of diabetes mellitus; Z85.3 Personal history of malignant neoplasm of breast; Z87.891 Personal history of nicotine dependence; Z90.13 Acquired absence of bilateral breasts and nipples; G51.0 Bell's palsy; K21.9 Gastro-esophageal reflux disease without esophagitis; E11.65 Type 2 diabetes mellitus with hyperglycemia; Z90.89 Acquired absence of other organs; Z88.5 Allergy status to narcotic agent; Z88.0 Allergy status to penicillin
CPT/HCPCS: 30901; 36415; 70450; 80048; 81003; 82607; 82728; 82962; 83036; 83540; 83550; 84443; 85025; 85045; 85610; 92950; 93005; 95819; J1953; J2060

== ENCOUNTER 2020-04-08 12:39 | Emergency (ER) | payer MEDICARE ==
[~2020-04-08] VITALS: Ht 160 cm; Wt 74.4 kg
--- NOTE | 2020-04-08 13:14 | NUR ---
STORE RECEIVING SPECIALIST: PT CALLED FOR ROOM, NO ANSWER
[2020-04-08 13:37] LABS: BASOPHILS % (AUTO) 2 % (0-1); EOSINOPHILS % (AUTO) 1 % (1-7); LYMPHOCYTES % (AUTO) 31 % (22-44); MEAN CORPUSCULAR HEMOGLOBIN 22.5 pg (27.0-34.8); MEAN PLATELET VOLUME 8.4 fL (7.4-10.4); MONOCYTES % (AUTO) 7 % (2-9); NEUTROPHILS % (AUTO) 60 % (42-75); PLATELET COUNT 282 x10^3/uL (130-400); RED BLOOD COUNT 3.39 x10^6/uL (3.82-5.3); RED CELL DISTRIBUTION WIDTH 24.8 % (9.6-15.2)
[2020-04-08 13:43] LABS: ALBUMIN 3.3 g/dL (3.4-5.0); ANION GAP 7 mmol/L (5-15); CALCIUM 9.2 mg/dL (8.5-10.1); CHLORIDE 106 mmol/L (98-107)
--- NOTE | 2020-04-08 13:44 | NUR ---
SUPERVISOR TWISTING DEPARTMENT: PT TO ROOM FROM LOBBY VIA [facility]ADISON
[2020-04-08 13:49] LABS: CREATININE 0.85 mg/dL (0.55-1.02); TROPONIN I < 0.015 ng/mL (0.000-0.045)
--- NOTE | 2020-04-08 14:00 | NUR ---
PT BIB TAXI. PER PT SHE IS HERE BECAUSE "ABIMBOLA HAS TOLD ME MULTIPLE TIMES I MIGHT HAVE A BLOOD CLOT THAT BROKE OFF AND IS IN MY LUNGS". PT DENIES ANY CHEST PAIN. PT STATES "IT DOESN'T HURT TO BREATH BUT IT IS KIND OF HARD".
[2020-04-08 14:04] LABS: MEAN CORPUSCULAR HGB CONC 28.1 g/dL (32.4-35.8)
[2020-04-08 14:05] LABS: MD SCAN
[2020-04-08 15:20] VITALS: BP 124/65
== END 2020-04-08 15:22 | disposition home or self-care (01) ==
LOC: ED 15:16
DX: R60.0 Localized edema (principal); M79.605 Pain in left leg; R07.89 Other chest pain; R06.09 Other forms of dyspnea; E11.9 Type 2 diabetes mellitus without complications; Z91.19 Patient's noncompliance with other medical treatment and regimen
CPT/HCPCS: 36415; 71045; 80048; 82040; 84484; 85025; 93005; 99285

== ENCOUNTER 2020-11-13 15:42 | Emergency (ER) | payer MEDICARE ==
[~2020-11-13] VITALS: Ht 160 cm; Wt 76.0 kg
[~2020-11-13 15:42] MED LIST changes: +BUPR150T22 PO; -BUPR150T6 PO; -CIPR500T3 PO; +CIPR500T4 PO; +CLOP75TA PO; -MONT10TA11 PO; +MONT10TA17 PO; -OXYC5TAB3 PO; +OXYC5TAB98 PO; +POTA20PA25 PO; +Sulfameth./Trimethoprim Ds PO
[2020-11-13 15:45] VITALS: BP 117/86
--- NOTE | 2020-11-13 18:32 | NUR ---
COMMERCIAL APPRAISER: CALLED PT NO ANSWER
--- NOTE | 2020-11-13 19:09 | NUR ---
nax2
--- NOTE | 2020-11-13 19:21 | NUR ---
NA X3
== END 2020-11-13 19:27 | disposition left against medical advice (07) ==
LOC: ED 15:48
DX: S00.211A Abrasion of right eyelid and periocular area, initial encounter (principal); X58.XXXA Exposure to other specified factors, initial encounter; Y93.89 Activity, other specified; Y92.89 Other specified places as the place of occurrence of the external cause; Y99.8 Other external cause status
CPT/HCPCS: 99281

== ENCOUNTER 2020-11-23 14:35 | Emergency (ER) | payer MEDICARE ==
[~2020-11-23] VITALS: Ht 160 cm; Wt 76.0 kg
--- NOTE | 2020-11-23 14:55 | NUR ---
Patient ambulatory to room on her feet. C/O pain when she stands up or sits down. Service animal BS.
--- NOTE | 2020-11-23 15:15 | NUR ---
Assumed care of pt. This is a 60 yo female who presents to the ER c/o rid sided rib pain s/p falling out of the shower. Pt does report that she had dizziness but per her "the dizziness is normal for me because I have a brain tumor". Small bruise on back noted near armpit. Pt tender to palpation mid back to lateral right side. Pt able to speak in full 10-12 word sentences w/o difficulty. Resp even and unlabored. TRACY Guerra at bedside. Call light within reach. Will cont to monitor pt.
[2020-11-23] MEDS ORDERED: ONDANSETRON 2MG/ML, 2ML ONE (16:07)
[2020-11-23] MEDS ORDERED: MORPHINE SULFATE 4 MG/ML, 1ML ONE ×2 (16:07→17:54)
[2020-11-23] MEDS: MORPHINE SULFATE 4 MG/ML, 1ML IVPush PRN ×2 (16:26→18:01)
[2020-11-23 16:40] LABS: BASOPHILS % (AUTO) 1 % (0-1); EOSINOPHILS % (AUTO) 1 % (1-7); LYMPHOCYTES % (AUTO) 17 % (22-44); MEAN CORPUSCULAR HEMOGLOBIN 30.9 pg (27.0-34.8); MEAN PLATELET VOLUME 8.9 fL (7.4-10.4); MONOCYTES % (AUTO) 6 % (2-9); NEUTROPHILS % (AUTO) 75 % (42-75); PLATELET COUNT 288 x10^3/uL (130-400); RED BLOOD COUNT 4.73 x10^6/uL (3.82-5.3); RED CELL DISTRIBUTION WIDTH 15.1 % (9.6-15.2)
[2020-11-23 16:50] LABS: ALANINE AMINOTRANSFERASE 22 U/L (12-78); ALBUMIN 3.6 g/dL (3.4-5.0); ANION GAP 6 mmol/L (5-15); CALCIUM 9.4 mg/dL (8.5-10.1); CHLORIDE 100 mmol/L (98-107)
[2020-11-23 16:52] LABS: ALKALINE PHOSPHATASE 132 U/L (45-117); BILIRUBIN,TOTAL 0.4 mg/dL (0.2-1.0); TOTAL PROTEIN 8.3 g/dL (6.4-8.2)
[2020-11-23] MEDS ORDERED: SODIUM CHLORIDE FLUSH 10ML SYR IVF ONE (17:00)
[2020-11-23] MEDS ORDERED: ONDANSETRON 2MG/ML, 2ML IVPush ONE (17:00)
[2020-11-23] MEDS ORDERED: SODIUM CHLORIDE 0.9%, 500ML IVBOLUS ONE (17:00)
[2020-11-23] MEDS ORDERED: OMNIPAQUE 350 MG/ML, 100ML BOTTLE ONE ×2 (17:49)
--- NOTE | 2020-11-23 18:10 | NUR ---
Pt standby assist to restroom and back to [facility]. Pt positioned for comfort. Pt cont to c/o 10/10 pain. Pt remedicated as ordered. Pt aware we are waiting for lab/imaging results. Pt Ao x 4. Skin pink, warm and dry. Resp even and unlabored. No acute distress noted at this time. Pt on cont bp, cardiac and spo2 monitors. Call light within reach. Will cont to montior pt.
--- NOTE | 2020-11-23 18:17 | NUR ---
TRACY Damon at bedside for recheck/explanation of results.
[2020-11-23 18:59] VITALS: BP 113/56
== END 2020-11-23 19:01 | disposition home or self-care (01) ==
LOC: ED 14:52
DX: S20.211A Contusion of right front wall of thorax, initial encounter (principal); S30.1XXA Contusion of abdominal wall, initial encounter; R07.9 Chest pain, unspecified; R42 Dizziness and giddiness; R94.31 Abnormal electrocardiogram [ECG] [EKG]; I11.0 Hypertensive heart disease with heart failure; I50.9 Heart failure, unspecified; I25.2 Old myocardial infarction; E11.65 Type 2 diabetes mellitus with hyperglycemia; E78.5 Hyperlipidemia, unspecified; Z87.891 Personal history of nicotine dependence; E03.9 Hypothyroidism, unspecified; J44.9 Chronic obstructive pulmonary disease, unspecified; W18.30XA Fall on same level, unspecified, initial encounter; Y93.89 Activity, other specified; Y92.009 Unspecified place in unspecified non-institutional (private) residence as the place of occurrence of the external cause; Y99.8 Other external cause status
CPT/HCPCS: 36415; 71260; 74177; 80053; 83690; 85025; 93005; 96361; 96374; 96375; 96376; 99285; J2270; J2405; J7040; Q9967